=== PATIENT | female | born 1970 | race Caucasian/White ===

== ENCOUNTER → 2024-04-22 06:48 | Outpatient (REF) | payer BC, SELFPAY | LOC: PAVMRI 06:48 | PROVIDERS: ATTENDING PHYSICIAN Orthopaedic Surgery Hand Surgery; FAMILY PHYSICIAN Physician Assistant Medical | DX: M77.12 Lateral epicondylitis, left elbow (principal) | CPT/HCPCS: 73221 ==

== ENCOUNTER 2025-01-30 09:26 | Emergency (ER) | payer BC, SELFPAY ==
[2025-01-30 09:32] VITALS: BP 123/78
[2025-01-30 10:02] VITALS: BMI 23.0
[2025-01-30] MEDS: SUBLIMAZE 50 MCG IV (10:08)
--- NOTE | 2025-01-30 10:31 | ED.GENMED ---
History of Present Illness
<Umberto Hay PA-C - Last Filed: 01/30/25 15:03>
General
Chief Complaint: Musculo-Skeletal Complaint
Time Seen by Provider: 01/30/25 09:43
History of Present Illness
History of Present Illness:
55-year-old female with history of left total hip arthroplasty presents to the emergency department for evaluation of severe left hip pain. She states she was turning to get out of her car while pivoting with the left foot on the ground and she
felt a sudden 'pop' and severe pain. She is unable to bear weight on the left hip since then. Pain travels to the mid thigh into the knee. ANA was performed by [facility] in 2020
Past History
<Umberto Hay PA-C - Last Filed: 01/30/25 15:03>
Past History
ED Past Medical History: Other (Arthritis)
ED Past Surgical History:
Social History
Tobacco: Non-smoker
Alcohol: None
Drug: None
Living: with family
Family History
Family History: Negative Diabetes, Hypertension, Early CAD, Asthma or Cancer
Review of Systems
<Umberto Hay PA-C - Last Filed: 01/30/25 15:03>
Review of Systems
Allergies reviewed?: Yes
All Other Systems: ROS reviewed and negative except as documented in HPI and ROS
Phy Exam
<Umberto Hay PA-C - Last Filed: 01/30/25 15:03>
Physical Exam
Physical Exam:
GEN: Well appearing, NAD, WDWN
HEENT: Oral mucosa moist, no scleral icterus
Cardiac: Regular rate
Lung: No respiratory distress, no tachypnea
MSK: Hip held in slight flexion with knee flexion, unable to assess due to severe pain
Skin: Good color, no pallor or jaundice, no rashes
Neuro: AO x3, moves all extremities freely
Psych: Calm, cooperative
Course
<Umberto Hya PA-C - Last Filed: 01/30/25 15:03>
Orders/Labs/Results
Orders:
Orders
01/30/25 09:51
CR Femur - Left 1 View Urgent
Comment:
Reason For Exam: injury
CR Hip - LT w/wo Pel 2-3 Vw* Urgent
Comment:
Reason For Exam: poss prosthetic hip dislocation
Include a pelvis x-ray?: No
01/30/25 09:53
IV Insert/Care/Rem.- Treatment PRN
Fentanyl Citrate/Pf [Sublimaze] 50 mcg IV NOW STA
01/30/25 10:18
Ondansetron Injectable [Zofran] 4 mg IV NOW STA
01/30/25 10:38
HYDROmorphone [Dilaudid] 0.5 mg IV NOW STA
01/30/25 11:07
CT Lower Ext W/o Iv Cont Lt Urgent
Comment:
Reason For Exam: L hip pain, XR negative
01/30/25 11:14
HYDROmorphone [Dilaudid] 0.5 mg IV NOW STA
01/30/25 13:16
Ketorolac [Toradol] 15 mg IV NOW STA
diazePAM [Valium Injection] 2 mg IV NOW STA
Vital Signs
Initial and Last Documented VS:
Initial Vital Signs
Temp Pulse Resp BP Pulse Ox
98.7 F 75 18 123/78 97
01/30/25 09:32 01/30/25 09:32 01/30/25 09:32 01/30/25 09:32 01/30/25 09:32
Last Documented Vital Signs
Temp Pulse Resp BP Pulse Ox
98.7 F 75 18 113/84 94
01/30/25 09:32 01/30/25 09:32 01/30/25 09:32 01/30/25 14:00 01/30/25 14:15
<Najma Quispe MD - Last Filed: 01/30/25 11:25>
Orders/Labs/Results
Orders:
Orders
01/30/25 09:51
CR Femur - Left 1 View Urgent
Comment:
Reason For Exam: injury
CR Hip - LT w/wo Pel 2-3 Vw* Urgent
Comment:
Reason For Exam: poss prosthetic hip dislocation
Include a pelvis x-ray?: No
01/30/25 09:53
IV Insert/Care/Rem.- Treatment PRN
Fentanyl Citrate/Pf [Sublimaze] 50 mcg IV NOW STA
01/30/25 10:18
Ondansetron Injectable [Zofran] 4 mg IV NOW STA
01/30/25 10:38
HYDROmorphone [Dilaudid] 0.5 mg IV NOW STA
01/30/25 11:07
CT Lower Ext W/o Iv Cont Lt Urgent
Comment:
Reason For Exam: L hip pain, XR negative
01/30/25 11:14
HYDROmorphone [Dilaudid] 0.5 mg IV NOW STA
01/30/25 13:16
Ketorolac [Toradol] 15 mg IV NOW STA
diazePAM [Valium Injection] 2 mg IV NOW STA
Vital Signs
Initial and Last Documented VS:
Initial Vital Signs
Temp Pulse Resp BP Pulse Ox
98.7 F 75 18 123/78 97
01/30/25 09:32 01/30/25 09:32 01/30/25 09:32 01/30/25 09:32 01/30/25 09:32
Last Documented Vital Signs
Temp Pulse Resp BP Pulse Ox
98.7 F 75 18 113/84 94
01/30/25 09:32 01/30/25 09:32 01/30/25 09:32 01/30/25 14:00 01/30/25 14:15
<Umberto Hay PA-C - Last Filed: 01/30/25 15:03>
MDM/Problems Addressed
MDM/Problems Addressed:
Patient was reexamined after pain control, she has adequate hip range of motion with focal tenderness of the IT band along the left leg. She is able to ambulate without difficulty. Imaging both by x-ray and CT is unremarkable for acute
periprosthetic fracture or dislocation. Likely soft tissue injury, recommend outpatient orthopedic follow-up
<Umberto Hay PA-C - Last Filed: 01/30/25 15:03>
*Critical Care Note
Total Time (30-74mins, 75-104mins- exclusive of procedures): Not Applicable
ED Attending Note
<Umberto Hay PA-C - Last Filed: 01/30/25 15:03>
-
Portions of this chart may have been created with voice recognition software.� Occasional wrong word or��sound alike� substitutions may have occurred due to the inherent limitations of voice recognition software.
<Najma Quispe MD - Last Filed: 01/30/25 11:25>
ED Attending Note
Patient seen and examined by attending physician: Yes
I performed the substantive portion of visit, reviewed & personally made and approve the management plan that is documented in note by myself or LAUREN.: Yes
ED Attending Note:
Patient arrives nontoxic but complains of sudden onset of a pop and pain in her left hip. Patient complains of mild tingling in her left foot since the the pain started. Patient had strong pulses in bilateral feet. She has no deformity or
swelling of left lower extremity. Patient is breathing comfortably. I was able to review prior x-rays from March 29, 2022 and they look unchanged from today. We will have patient undergo a CT of the left hip and consult Ortho due to patient's
severe pain.
Discharge Plan
Departure
Patient Disposition: Home (Routine Discharge)
Date of Disposition: 01/30/25
Time of Disposition: 14:23
Patient with high blood pressure during this ER visit?: No
Discharge Problem:
Muscle strain of left thigh
Instructions: Muscle Strain (DC)
Prescriptions:
New
hydromorphone 4 mg tablet
4 mg PO Q6H PRN (Reason: Pain) Qty: 10 0RF
celecoxib [Celebrex] 200 mg capsule
200 mg PO BID PRN (Reason: Pain) Qty: 20 0RF
No Action
levofloxacin 500 MG tablet
500 mg PO DAILY 10 Days 0RF
hydromorphone 4 MG tablet
4 mg PO Q6HPRN PRN (Reason: pain) Qty: 10 0RF
Referrals:
Ewelina Parker PA [Family Provider] -
Activity Restrictions/Additional Instructions:
Follow up with your e marketing specialist as soon as possible
Interventions
Interventions:
*Risk Screen - Suicide Last Done: 01/30/25 09:32
*General Assessment Last Done: 01/30/25 09:32
*Neglect/Abuse Screening Last Done: 01/30/25 09:32
*ED- Fall Risk Assessment Last Done: 01/30/25 10:02
*ED COVID-19 Vaccine History Last Done: 01/30/25 10:02
*Nursing Disposition Last Done: 01/30/25 14:35
ED-Musculoskeletal Assessment Last Done: 01/30/25 10:02
Discharge Date and Time
Discharge Date/Time: 01/30/25 14:36
Print Language: SLOVAK
[2025-01-30] MEDS: ZOFRAN 4 MG IV (10:38)
[2025-01-30 10:42] VITALS: BP 139/61
[2025-01-30] MEDS: DILAUDID 0.5 MG IV ×2 (10:42→11:20)
[2025-01-30 11:00] VITALS: BP 92/78
[2025-01-30 12:00] VITALS: BP 117/73
[2025-01-30] MEDS: VALIUM INJECTION 2 MG IV (13:20)
[2025-01-30] MEDS: TORADOL 15 MG IV (13:20)
[2025-01-30 13:21] VITALS: BP 140/69
[2025-01-30 14:00] VITALS: BP 113/84
== END 2025-01-30 14:36 | disposition home or self-care (01) ==
LOC: EMR 09:26
PROVIDERS: EMERGENCY PHYSICIAN Emergency Medicine; FAMILY PHYSICIAN Physician Assistant Medical
DX: S76.912A Strain of unspecified muscles, fascia and tendons at thigh level, left thigh, initial encounter (principal); X50.1XXA Overexertion from prolonged static or awkward postures, initial encounter
CPT/HCPCS: 99284; 96374; 96375 ×4; 96376; 73502; 73551; 73700